=== PATIENT | male | born 1995 | race Caucasian/White ===

== ENCOUNTER 2025-09-16 04:44 | Emergency (ER) | payer MEDICAID ==
[~2025-09-16] VITALS: Ht 185.4 cm; Wt 181.0 kg
[2025-09-16 04:57] VITALS: O2SAT 100
[2025-09-16] MEDS: ACETAMINOPHEN 325MG TABLET PO ONE (06:44)
[2025-09-16 06:46] VITALS: BP 121/72; PULSE 76; RESP 18; TEMP 36.6; O2SAT 100
== END 2025-09-16 06:47 | disposition home or self-care (01) ==
LOC: ER 04:44
DX: B34.9 Viral infection, unspecified (principal); Z59.00 Homelessness unspecified
CPT/HCPCS: 99283